=== PATIENT | female | born 1990 | race Caucasian/White ===

== ENCOUNTER 2017-03-11 11:02 | Inpatient (IN) ==
--- NOTE | 2017-03-11 11:19 | OB/GYN History & Physical ---
Date of Encounter: 03/11/17 Time of Encounter: 11:16 Assessment and Plan (1) 39 weeks gestation of Current visit: Yes Status: Acute Admit to labor and delivery for observation secondary to a 2 out of 8 biophysical profile in the office just prior to arrival. -Labor and delivery evaluation. -FHT 140 bpm, moderate variability with 15 x 15 accelerations. -Repeat BPP 10, Robles score [address] Gill. -Will admit to labor and delivery for IOL with PO cytotec and cervical herbert catheter. History of Present Illness Chief complaint: Labor Evaluation/ 06/12 BPP HPI: Ms. Santillan is a 26 year old female at 39 weeks 6 days who presents to labor and delivery after being transferred from the office by Dr. Gill for a 2 out of 8 biophysical profile. Patient states she last felt her fetus move this morning. She denies any loss of fluid, vaginal bleeding, or contractions. Patient does report one mild headache last night that was easily resolved with Tylenol. She denies any right upper quadrant abdominal pain, dysuria, fever, or chills. She denies any nausea or vomiting. Group B strep negative Hepatitis B surface antigen nonreactive HIV nonreactive Treponema pallidum negative Rubella immune Varicella-zoster immune Type and screen O+ Antibody screen negative Past Med Surg Social Fam HX - Past Medical History Attestation: Yes The following information was validated with the patient. Source: patient Medical history: non-contributory Psychiatric history: no psych history - Past Surgical History Surgical History: no surgical history - Social History Smoking Status: Current every day smoker Smokeless Tobacco Status: No Alcohol use: none Drug use: none Obstetrical History - Pregnancies : 1 Para: 0 Term: 0 : 0 Ab's: 0 Livin - History/Complications History/Complications: Patient had oligohydramnios, which has resolved. Medications and Allergies Vit No.124/Iron/FA [ Vitamin Tablet] 1 each PO DAILY 30 Days tablet 08/15/16 [Rx] 3 Allergy/AdvReac Type Severity Reaction Status Date / Time No Known Allergies Allergy Verified 01/22/15 04:27 Review of System OB All systems PM: reviewed and no additional remarkable complaints except as stated - Constitutional Constitutional ROS IM: no chills, no fever(s), no lethargy - Respiratory Respiratory: no cough, no dyspnea, no wheezing - Gastrointestinal Gastrointestinal: no abdominal pain, no belching, no bloating, no constipation - Genitourinary Genitourinary: no difficulty urinating, no difficulty voiding - Neurological Nerological: headache(s) (one mild headache last night easily resolved with tylenol), no focal weakness Exam - Constitutional Constitutional: well developed, well nourished, no acute distress (Patient is mildly anxious) - HEENT HEENT: Mucus Membranes Moist - Lungs Respiratory exam: CTAB - Cardiovascular Cardiovascular exam: +S1, +S2, tachycardia - Abdomen Abdomen: Present: bowel sounds normal, gravid, non tender - Extremities Extremities exam: radial pulses palpable and symmetrical Deep Tendon Reflex Grade: 2+ Normal - Cervix Dilation: 2 Effacement: 80 Station: -1 - Comments Comments: heart tracing 1 40 bpm, moderate variability, 15 x 15 accelerations. Category 1 and reassuring. Results All other labs normal. - VTE Reasons for not Prescribing Prophylaxis: Treatment not Indicated - Low risk for VTE - Attending Attestation I examined this patient and my medical decision-making was reviewed with the Resident Physician. I agree with the documented findings, disposition and treatment plan as described. Amanda Abreu CNM
[2017-03-11] MEDS ORDERED: Famotidine 20 MG/2 ML VIAL IVP PRN (12:15)
[2017-03-11] MEDS ORDERED: Ondansetron 4 MG/2 ML VIAL IVP PRN (12:15)
[2017-03-11] MEDS ORDERED: Naloxone 0.4 MG/ML INJ IVP PRN (12:15)
[2017-03-11] MEDS ORDERED: *HR* Nalbuphine 20 MG/ML AMPUL IVP PRN (12:15)
[2017-03-11] MEDS ORDERED: Ringers Solution, Lactated 1,000 ML IVC SCH (12:15)
[2017-03-11] MEDS ORDERED: miSOPROStol 25 MCG TABLET PO PRN (12:18)
[2017-03-11] MEDS ORDERED: Lidocaine/EPI 1:100k 1% 50 ML VIAL INFILT PRN (12:21)
--- NOTE | 2017-03-11 13:11 | OB Labor Progress Note ---
Date of Encounter: 03/11/17 Time of Encounter: 13:10 Labor Progress Note - Subjective Subjective: Patient resting comfortably in bed after po cytotec dose - Vital Signs Vital Signs: VSS - Cervix Cervix: 2/70/-2 posterior - Heart Tones Heart Tones: 140 moderate variability with 15 x 15 accels with scalp stimulation during vaginal exam - [place] Rising [place]: irregular contractions and irritability noted. - Interventions Interventions: Cervical herbert balloon placed with difficulty. Patient and fetus tolerated well. - Plan Plan: Continue routine labor management. GBS negative. Patient may have nubain upon request for pain control per policy Consider epidural prior to AROM for augmentation Anticipate vaginal delivery POC per consult with Dr Gill.
[2017-03-11 14:53] LABS: Basophils % 0.4 %; Eosinophils % 0.3 %; Hematocrit 37.8 % (35.3-44.9); Hemoglobin 12.8 g/dL (11.5-15.4); Immature Granulocytes % 0.4 % (0-4); Lymphocytes # 1.9 K/mcL (0.6-4.6); Lymphocytes % 20.5 %; Mean Corpuscular HGB Conc 33.9 g/dL (31.6-35.5); Mean Corpuscular Hemoglobin 30.5 pg (28.0-33.3); Mean Platelet Volume 14.2 fL (9.4-12.4); Monocytes # 0.8 K/mcL (0.0-1.3); Monocytes % 8.7 %; Neutrophils # 6.3 K/mcL (1.6-8.9); Platelet Count 151 K/mcL (140-400); Red Cell Distribution Width 13.9 % (11.5-14.5); Segmented Neutrophils % 69.7 %
[2017-03-11 14:58] LABS: Amphetamine Screen,Urine Negative ng/mL (Cutoff=1000); Barbiturate Screen,Urine Negative ng/mL (Cutoff=200); Benzodiazepines Screen,Urine Negative ng/mL (Cutoff=200); Cannabinoid Screen,Urine Negative ng/mL (Cutoff = 50); Cocaine Screen,Urine Negative ng/mL (Cutoff= 300); Opiate Screen,Urine Negative ng/mL (Cutoff=300); Phencyclidine Screen,Urine Negative ng/mL (Cutoff=25)
[2017-03-11] MEDS ORDERED: Oxytocin 20 units/ LR 1000 mL 20 UNIT/1,000 ML BAG IVC SCH (17:15)
[2017-03-11] MEDS ORDERED: Epidural Premix (fent/bupiv) 110 ML EP SCH (19:45)
[2017-03-11] MEDS ORDERED: EPHEDrine 50 MG/ML VIAL IVP PRN (19:45)
[2017-03-11] MEDS ORDERED: *HR* Ropivacaine/PF 0.2% 10 ML AMPUL EP ONE (19:45)
[2017-03-11] MEDS ORDERED: Ringers Solution, Lactated 500 ML IVC ONE (19:45)
--- NOTE | 2017-03-11 19:45 | Anesthesia Evaluation PreOp ---
Date of Encounter: 03/11/17 Time of Encounter: 19:30 - Past History Planned Operation: RAHUL Cardiac History: Denies any Significant Hx Pulmonary History: Denies Any Significant HX CHEF ASSISTANT History: Denies Any Significant HX Other Medical History: GERD (with ) : Yes Alcohol Use: none Drug use: none Medications and Allergies Vit No.124/Iron/FA [ Vitamin Tablet] 1 each PO DAILY 30 Days tablet 08/15/16 [Rx] 3 Allergy/AdvReac Type Severity Reaction Status Date / Time No Known Allergies Allergy Verified 01/22/15 04:27 - Meds/Allergy Pre-op Review Medications Reviewed: Yes Allergies Reviewed: Yes Beta Blockers on Current Med List: No Anesthesia Results - Labs 03/11/17 11:10 Anesthesia Exam Height: 1.65m Weight: 75.9kg NPO (# of Hours): >6hr Pain Scale: 3 Pain Scale Used: Numeric (1 - 10) - HEENT Pupil (Motor): Pupils equal Mallampati: I Teeth: Normal Oral Opening: Greater than 3 - CHEF ASSISTANT LOC: Oriented CHEF ASSISTANT Motor: Normal RUE, Normal LUE, Normal RLE, Normal LLE, Normal Face CHEF ASSISTANT Sensory: Normal: RUE, LUE, RLE, LLE, Face - Cardiac Rhythm: Regular Murmur: None JVD: No Carotid Bruit: No - Pulmonary Breath Sounds: bilateral Clear Respiratory Effort: Symmetrical Anesthesia Assess/Plan ASA Score: 2 Modified Juan Scale for Level of Consciousness: Cooperative, oriented, and tranquil Anesthetic Plan: Regional Monitoring Plan: Standard Monitors Recovery Plan: Other
--- NOTE | 2017-03-11 20:25 | OB Labor Progress Note ---
Date of Encounter: 03/11/17 Time of Encounter: 20:23 Labor Progress Note - Subjective Subjective: The patient reports comfort with contractions - Vital Signs Vital Signs: Afebrile, vital signs stable - Cervix Cervix: 3/80/-1, vertex per RN - Heart Tones Heart Tones: 140s, CAT 1 - [place]: Contractions irregular every 2-6 minutes on 4 milliunits of Pitocin - Interventions Interventions: 39 week 6 day IUP for induction of labor due to nonreassuring testing - Plan Plan: Patient is status post one dose of 50 MCG's of Cytotec and a Cook. Currently on Pitocin. Will try peanut ball to help
[2017-03-11] MEDS ORDERED: ROPIVACAINE HCL/PF 0.5% 30 ML VIAL ONE (22:05)
[2017-03-11] MEDS ORDERED: Epidural Premix (fent/bupiv) 110 ML EP ONE (22:06)
--- NOTE | 2017-03-11 22:37 | Anesthesia Procedures ---
Date of Encounter: 03/11/17 Time of Encounter: 22:08 Procedures: Anesthesia - Epidural/Spinal Patient ID/Chart reviewed: Yes Patient examined: Yes OB Eval: Gestational age: 39 OB Eval: : 1 OB Eval: Hx Para: 0 OB Eval: Dilated at (cm): 4 OB Eval: Contractions: Non-stressed pattern Consent Obtained: Yes Site Prep: Aseptic Technique, Sterile prep and drape, 0.5% Chlorhexidine/Alcohol Patient position: upright Local Anesthetic: Lidocaine 1% Amount of Local Anesthetic used: 2 Touhy Needle Gauge: 18 Touhy Needle Depth (cm): 6 Catheter Depth at Skin (cm): 13 Test Dose (1.5% Lido + Epi): Volume given (mls): 4 Test Dose Result: Negative Loading Dose: Other: Ropivacaine 0.5% Loading Dose Administered: Thru Catheter Infusion Med: 0.125% Bupivacaine w/ 2 mcg/ml Fentanyl Infusion Rate (mls/hr): 14 (Bolus 4mL q15min; Max 3/hr) Catheter Secured in Place: Tegaderm Interspace Used: L3-L4 Loss of Resistance (GUILLE): Yes Blood: No CSF: No Paresthesia: No Procedure: x1 attempt. Patient tolerated well. Vitals + FHT's: VSS and FHR stable throughout. See nursing documentation.
[2017-03-11] MEDS ORDERED: Famotidine 20 MG/2 ML VIAL IVP ONE (22:58)
[2017-03-12] MEDS ORDERED: Epidural Premix (fent/bupiv) 110 ML EP ONE ×3 (04:59→14:25)
[2017-03-12] MEDS ORDERED: *HR* FentaNYL (PF) 100 MCG/2 ML VIAL ONE ×2 (05:08→08:22)
--- NOTE | 2017-03-12 06:45 | OB Labor Progress Note ---
Date of Encounter: 03/12/17 Time of Encounter: 06:43 Labor Progress Note - Subjective Subjective: Patient comfortable with epidural - Vital Signs Vital Signs: Afebrile, vital signs stable - Cervix Cervix: 6/90/-1, vertex with bulging bag of water - Heart Tones Heart Tones: 140s baseline with variables with contractions,CAT2 - [place]: Contractions are every 2-3 minutes 40-50 mmHg on 8 milliunits of Pitocin - Interventions Interventions: 40 week IUP with induction of labor for nonreassuring testing. - Plan Plan: Amniotomy with small amount of bloody fluid seen. IUPC placed. Pitocin decreased to 4 milliunits. Patient repositioned and given peanut ball and right lateral. Continue close observation
[2017-03-12] MEDS ORDERED: Lidocaine/EPI 1:200k 2% PF 20 ML VIAL ONE (08:22)
--- NOTE | 2017-03-12 08:32 | Anesthesia Progress Note ---
Date of Encounter: 03/12/17 Time of Encounter: 08:30 Anesthesia Note - Note Note: 03/12/17 08:30 called for increased pain during contractions. pt assessed. pain on left side with contractions. rate increased to 16 ml/hr. pcea increased to [id number]. bolus given 5ml of 2%lidocaine with epi with 100mcg fentanyl. pt comfortable. vss. fhr stable.
--- NOTE | 2017-03-12 17:28 | OB/GYN Procedure Note ---
Delivery - Delivery Date: 03/12/17 Provider: Arely Wilson (MD Verena) Intrapartum events: none Delivery induction: AROM, oxytocin, herbert, misoprostol Delivery monitor: external FHT, internal uterine Anesthesia: epidural Estimated Blood Loss: 400 - (s) Infant A Delivery Date: 03/12/17 Infant Delivery Time: 16:44 Presentation: vertex Position: CRYSTAL Route of delivery: Gender: Male Viability: Viable at 1 minute: 8 at 5 mins: 9 Shoulder Dystocia: not encountered Specimens collected: cord blood Placenta: spontaneous Cord: 3 umbilical vessels - Repair Episiotomy: none Laceration Description: Perineal - 2nd Degree - Complications Delivery complications: uterine atony Delivery comments: Under maternal effort, a viable male was delivered via over 2nd degree perineal laceration. At five minutes of age the cord was clamped and cut and the placenta delivered spontaneous and intact. Brisk bleeding and uterine atony noted and bimanual compression initiated. Methergine given IM. Bleeding slowed following interventions. EBL 400ml. Evaluation of laceration reveals complex second degree perineal laceration. Dr. Dey called to assist with repair. Mother and baby stable in kangaroo care following procedure. - Disposition Mom disposition: stable in LDR [place] disposition: stable in LDR - Comments Comments: Called to room to evaluated perineal laceration and do repair. Evaluation reveals extensive second degree. Rectal exam by CNM reveals rectal mucosa and sphincter intact. Area on right posterior vagina shows loose tag of hymen that is excised. The transverse perinea is reapproximated using 2-0 vicryl in interrupted fashion. The vaginal mucosa and second degree is then reapproximated using 3-0 vicryl in standard fashion. Hemostasis is assured. Rectal exam to end procedure confirms no suture within the rectum. Sponge and needle counts are correct following the repair. Lochia is minimal. Lena Dey DO
[2017-03-12] MEDS ORDERED: Oxytocin 20 units/ LR 1000 mL 20 UNIT/1,000 ML BAG IVC SCH (20:00)
[2017-03-12] MEDS ORDERED: Lanolin 28 GM TUBE TP PRN (20:00)
[2017-03-12] MEDS ORDERED: Measles/Mumps/Rubella Vacc 0.5 ML VIAL SQ PRN (20:00)
[2017-03-12] MEDS ORDERED: Acetaminophen 325 MG TABLET PO PRN (20:00)
[2017-03-12] MEDS ORDERED: Benzocaine/Menthol 56 GM AEROSOL SPRAY TP PRN (20:00)
[2017-03-12] MEDS: Ibuprofen 600 MG TABLET PO PRN (20:46)
[2017-03-13] MEDS: Ibuprofen 600 MG TABLET PO PRN (07:31)
[2017-03-13 08:11] VITALS: BP 116/70
[2017-03-13] MEDS ORDERED: Prenatal Vit/FA 1 EACH TABLET PO SCH (09:00)
--- NOTE | 2017-03-13 09:19 | OB/GYN Progress Note ---
Date of Encounter: 03/13/17 Time of Encounter: 09:18 - Assessment and Plan (1) Spontaneous vaginal delivery Current Visit: Yes Status: Acute 26 yo s/p . Patient resting comfortably. Baby bottle feeding. Minimal lochia and clots. -Patient meeting all milestones including ambulation. -Anticipate DC home tomorrow. Subjective - Subjective Principal diagnosis: Normal Vaginal Delivery/IOL Interval history: Mrs. Santillan is a 26-year-old female status post normal vaginal delivery with IOL at 39 weeks 6 days. She successfully delivered a viable baby boy yesterday evening. This morning, the patient is resting comfortably. She converted to bottlefeeding over night. Patient states she is having minimal lochia with a small amount of clots. She does state she feels tender in her perineal region, however, she states the dermaplast provides relief. She also reports good pain control from ibuprofen for her abdominal cramping. Patient reports: appetite normal, voiding normally, pain well controlled, ambulating normally [place]: doing well, bottle feeding Objective - Latest Vital Signs Latest vital signs: Vital Signs Temp Pulse Resp BP Pulse Ox 03/13/17 07:50 97.7 F 96 12 116/70 97 03/13/17 03:25 97.8 F 99 16 117/70 98 03/12/17 21:45 98.1 F 88 16 118/83 98 03/12/17 20:45 98.3 F 85 16 131/82 98 03/12/17 19:40 98.8 F 96 16 134/76 96 Intake and Output 03/12/17 03/13/17 03/13/17 23:59 07:59 15:59 Output Total 650 / 650 1100 / 1100 Balance -650 / -650 -1100 / -1100 Output: Urine 650 / 650 1100 / 1100 Other: Weight 72.938 kg 72.121 kg Patient Weight 03/13/17 23:59 Weight 72.121 kg - Exam Lungs: bilateral: normal Chest: Normal S1, Normal S2 Extremities: Present: normal. Absent: edema Abdomen: Present: normal appearance, soft. Absent: tenderness Uterus: Present: normal, firm Uterus Position: 1 Finger Below Umbilicus, Right of Midline
[2017-03-13] MEDS ORDERED: Famotidine 20 MG TABLET PO SCH (10:30)
--- NOTE | 2017-03-13 10:39 | Discharge Summary ---
Date of Encounter: 03/13/17 Time of Encounter: 10:37 - Discharge Diagnosis (1) Spontaneous vaginal delivery Priority: Primary Status: Acute Comments: Continue routine care discharge home today - Discharge Medications Prescriptions: Ibuprofen [Motrin] 600 mg PO Q6HR PRN #60 tablet PRN Reason: Cramping Home Medications: Vit No.124/Iron/FA [ Vitamin Tablet] 1 each PO DAILY 30 Days tablet 08/15/16 [Rx] Benzocaine/Menthol [place] [Dermoplast [place]] 1 appl TP QID PRN aerosol 03/13/17 [Rx] Docusate [Colace] 100 mg PO BID capsule 03/13/17 [Rx] Ibuprofen [Motrin] 600 mg PO Q6HR PRN #60 tablet 03/13/17 [Rx] Lanolin 1 appl TP Q4HR PRN tube 03/13/17 [Rx] Vit/FA 1 each PO DAILY tablet 03/13/17 [Rx] Allergies/Adverse Reactions: 3 Allergy/AdvReac Type Severity Reaction Status Date / Time No Known Allergies Allergy Verified 01/22/15 04:27 Data Procedures and tests throughout hospitalization: Laboratory Tests 03/11/17 03/11/17 11:10 11:10 WBC 9.1 RBC 4.20 Hgb 12.8 Hct 37.8 MCV 90.0 MCH 30.5 MCHC 33.9 RDW 13.9 Plt Count 151 MPV 14.2 H Immature Gran % 0.4 Seg Neutrophils % 69.7 Lymphocytes % 20.5 Monocytes % 8.7 Eosinophils % 0.3 Basophils % 0.4 Neutrophils # 6.3 Lymphocytes # 1.9 Monocytes # 0.8 Eosinophils # 0.0 Basophils # 0.0 Urine Opiates Screen Negative Ur Barbiturates Screen Negative Ur Phencyclidine Scrn Negative Ur Amphetamines Screen Negative U Benzodiazepines Scrn Negative Urine Cocaine Screen Negative U Marijuana (THC) Screen Negative Date of admission: 03/11/17 11:02 Primary care physician: PCP NONE Consults: 03/12/17 20:00 Consult to Public Relations Consultant [CONS] Routine Comment: Vaginal delivery, consult needed Discharging clinician: Yumiko Barriga - Patient Status Disposition: Home, Self-Care Condition: Good Functional capacity at discharge: independent ambulation - Discharge Instructions Follow Up With: NONE,PCP [Primary Care Provider] - Yaa Gill MD [Partnered Physician] - - Diet and Activity Activity: increase activity as tolerated Diet: regular diet Hospital Course Delivery: Episiotomy: none Laceration: 2nd degree Other procedures: none complications: none Discharge diagnosis: IUP at term delivered baby: male (bottle feeding) Time Attestation: Total time spent providing and/or coordinating discharge services: Time Spent: Less than 30 minutes Exam - Constitutional Vitals: Temp Pulse Resp BP Pulse Ox 97.7 F 96 12 116/70 97 03/13/17 07:50 03/13/17 07:50 03/13/17 07:50 03/13/17 07:50 03/13/17 07:50
== END 2017-03-13 17:00 | disposition home or self-care (01) | DRG 560 ==
LOC: 1NENULAB → OBSVTOIN 11:02 → 1NENUOBS 03-12 19:39
PROVIDERS: ADMIT Obstetrics & Gynecology; ATTEND Obstetrics & Gynecology

== ENCOUNTER 2020-08-15 23:32 | Inpatient (IN) ==
[2020-08-16 00:32] LABS: Basophils # 0.1 K/mcL (0.0-0.2); Basophils % 0.8 %; Eosinophils # 0.1 K/mcL (0.0-0.6); Eosinophils % 0.7 %; Hematocrit 42.1 % (35.3-44.9); Hemoglobin 14.1 g/dL (11.5-15.4); Immature Granulocytes % 0.3 % (0-4); Lymphocytes # 3.7 K/mcL (0.6-4.6); Lymphocytes % 34.4 %; Mean Corpuscular HGB Conc 33.5 g/dL (31.6-35.5); Mean Corpuscular Hemoglobin 30.9 pg (28.0-33.3); Mean Corpuscular Volume 92.1 fL (83.0-100.0); Monocytes # 0.8 K/mcL (0.0-1.3); Monocytes % 7.7 %; Neutrophils # 6.1 K/mcL (1.6-8.9); Platelet Count 301 K/mcL (140-400); Red Blood Count 4.57 M/mcL (3.82-4.97); Red Cell Distribution Width 12.7 % (11.5-14.5); Segmented Neutrophils % 56.1 %; White Blood Count 10.8 K/mcL (4.3-11.1)
[2020-08-16 00:38] LABS: Estimated Average Glucose 94 mg/dl; Hemoglobin A1C 4.9 %
[2020-08-16 00:44] LABS: Acetaminophen < 10 mcg/mL (10-20); BUN/Creatinine Ratio 7 (6-26); Blood Urea Nitrogen 6 mg/dL (6-20); Calcium 8.7 mg/dL (8.6-10.3); Carbon Dioxide 22 mEq/L (23-29); Chloride 106 mEq/L (98-107); Chol/HDL Ratio 2.7 (0-4.9); Cholesterol 169 mg/dL (< 200); Ethanol 200 mg/dL (Less than 10); Glucose 110 mg/dL (70-105); HDL Cholesterol 63 mg/dL (40-59); Osmolality,Calculated 282 (280-300); Salicylate < 2.5 mg/dL (15.0-30.0); Sodium 137 mEq/L (136-145); Triglycerides 520 mg/dL (< 150); eGFR For African Americans > 60 (> 60); eGFR For Non-African Americans > 60 (> 60)
[2020-08-16] MEDS ORDERED: Nicotine 21 MG PATCH.TD24 TD SCH (01:00)
[2020-08-16 01:01] LABS: Bilirubin,Urine Negative (Negative); Blood,Urine Negative (Negative); Clarity,Urine Clear (Clear); Color,Urine Colorless (Yellow); Glucose,Urine (UA) Normal (Normal); Ketones,Urine Negative (Negative); Leukocyte Esterase,Urine Small (Negative); Nitrite,Urine Negative (Negative); Protein,Urine Negative (Neg-Trace); RBC,Urine 0-3 per hpf (0-3); Specific Gravity,Urine < 1.005 (1.010-1.025); Squamous Epithelial Cell,Urine Few per hpf (None-Few); Urobilinogen,Urine Normal (Normal); WBC,Urine 0-3 per hpf (0-3)
[2020-08-16 01:12] LABS: Amphetamine Screen,Urine Negative ng/mL (Cutoff=1000); Barbiturate Screen,Urine Negative ng/mL (Cutoff=200); Benzodiazepines Screen,Urine Negative ng/mL (Cutoff=200); Cannabinoid Screen,Urine Positive ng/mL (Cutoff = 50); Cocaine Screen,Urine Negative ng/mL (Cutoff= 300); Opiate Screen,Urine Negative ng/mL (Cutoff=300); Phencyclidine Screen,Urine Negative ng/mL (Cutoff=25)
[2020-08-16] MEDS ORDERED: hydrOXYzine pamoate 25 MG CAPSULE PO ONE (03:01)
[2020-08-16] MEDS ORDERED: Mag Hydrox/Al Hydrox/Simeth 30 ML UDC PO PRN (12:26)
[2020-08-16] MEDS ORDERED: *HR* LORazepam 2 MG/ML VIAL IM PRN (12:26)
[2020-08-16] MEDS ORDERED: traZODone 50 MG TABLET PO PRN (12:26)
[2020-08-16] MEDS ORDERED: *HR* LORazepam 1 MG TABLET PO PRN (12:26)
[2020-08-16] MEDS ORDERED: MOM Conc 10 ML UD.LIQ PO PRN (12:26)
[2020-08-16] MEDS ORDERED: Haloperidol Lactate 5 MG/ML VIAL IM PRN (12:26)
[2020-08-16] MEDS ORDERED: haloperidoL 5 MG TABLET PO PRN (12:26)
[2020-08-16] MEDS: hydrOXYzine pamoate 25 MG CAPSULE PO PRN ×2 (14:56→20:47)
[2020-08-16] MEDS: Nicotine 21 MG PATCH.TD24 TD SCH (15:01)
[2020-08-16] MEDS: Ibuprofen 400 MG TABLET PO PRN (20:48)
[2020-08-17] MEDS: hydrOXYzine pamoate 25 MG CAPSULE PO PRN ×2 (09:37→17:54)
[2020-08-17] MEDS: Folic Acid 1 MG TABLET PO SCH (09:37)
[2020-08-17] MEDS: Thiamine (B-1) 100 MG TABLET PO SCH (09:37)
[2020-08-17] MEDS: Nicotine 21 MG PATCH.TD24 TD SCH (09:37)
[2020-08-17] MEDS ORDERED: Melatonin 3 MG TABLET PO PRN (10:23)
[2020-08-17] MEDS: clonazePAM 0.5 MG TABLET PO PRN ×2 (12:54→20:24)
[2020-08-17] MEDS: Ibuprofen 400 MG TABLET PO PRN (12:55)
[2020-08-18] MEDS: hydrOXYzine pamoate 25 MG CAPSULE PO PRN (05:38)
[2020-08-18] MEDS: Thiamine (B-1) 100 MG TABLET PO SCH (08:47)
[2020-08-18] MEDS: Nicotine 21 MG PATCH.TD24 TD SCH (08:47)
[2020-08-18] MEDS: Folic Acid 1 MG TABLET PO SCH (08:47)
[2020-08-18] MEDS: clonazePAM 0.5 MG TABLET PO PRN (08:47)
[2020-08-18 09:12] VITALS: BP 143/94
== END 2020-08-18 10:15 | disposition home or self-care (01) | DRG 754 ==
LOC: EMEROOARM 23:32 → 1ANU 08-16 12:04
PROVIDERS: ADMIT Psychiatry & Neurology Psychiatry; ATTEND Psychiatry & Neurology Psychiatry